=== PATIENT | female | born 1990 | race African-American/Black ===

== ENCOUNTER 2016-12-01 18:44 | Emergency (ER) | payer BC, MEDICAID ==
[~2016-12-01] VITALS: Ht 160 cm; Wt 126.1 kg
[~2016-12-01 18:44] MED LIST: ALBUTEROL SULF8.5 GM INH; AUGMENTIN 875-1 EACH PO; LISINOPRIL10 MG ORAL; METFORMIN HCL1000 M1 ORAL; NAPROXEN SODIU550 M1 ORAL; NKM
[2016-12-01] MEDS ORDERED: IBUPROFEN600 MG ORAL (19:35)
[2016-12-01] MEDS ORDERED: AMOXICILLIN500 MG ORAL (19:35)
[2016-12-01] MEDS ORDERED: TESSALON PERLE100 MG ORAL (19:35)
[2016-12-01 19:46] VITALS: BP 136/90
[2016-12-01] MEDS ORDERED: PROAIR HFA8.5 GM INH (19:50)
--- NOTE | 2016-12-01 22:11 | Emergency Room Report ---
History of Present Illness General Chief Complaint: Sore Throat Source: Patient, Medical Record Present Illness HPI The patient is a 26 old female presenting for sore throat, productive cough, fever, and chills which began yesterday. The patient does admit to a sick contact was diagnosed with pharyngitis. Pain is described as an 8/10 dull ache to the back of the throat and is worse with swallowing. She does admit to one episode of vomiting after coughing. She denies other symptoms including N, SOB , CP, MELENDEZ, dizziness Allergies: Coded Allergies: No Known Allergies (Unverified , 05/31/12) Patient History Past Medical History: see triage record Pertinent Family History: none Last Menstrual Period: on IUD Reviewed Nursing Documentation: PMH: Agreed, PSxH: Agreed Nursing Documentation-PMH Past Medical History: No History, Except For Hx Hypertension: Yes Hx Asthma: Yes Hx Diabetes: Yes Review of Systems All Other Systems: negative except mentioned in HPI Physical Exam Vital Signs Date Time Temp Pulse Resp B/P Pulse Ox O2 Delivery O2 Flow Rate FiO2 12/01/16 18:55 97.9 92 17 136/90 99 Room Air Sp02 EP Interpretation: reviewed, normal General Appearance: no apparent distress, alert, GCS 15, non-toxic Head: normocephalic, atraumatic Eyes: bilateral eye PERRL, bilateral eye normal inspection ENT: hearing grossly normal, TMs + canals normal, uvula midline, nasal congestion, tonsillar swelling, pharyngeal erythema Neck: full range of motion, supple/symm/no masses Respiratory: chest non-tender, lungs clear, normal breath sounds, no wheezing, speaking full sentences Cardiovascular #1: regular rate, rhythm, no edema Musculoskeletal: back normal, gait/station normal, normal range of motion, non- tender Neurologic: alert, oriented x3, responsive, motor strength/tone normal, sensory intact, speech normal Psychiatric: judgement/insight normal, memory normal, mood/affect normal, no suicidal/homicidal ideation Skin: normal color, no rash, warm/dry, well hydrated Lymphatic: adenopathy Medical Decision Making PA Attestation Dr. William is my supervising physician. Patient management was discussed with my supervising physician Diagnostic Impression: Primary Impression: Asthma Qualified Codes: J45.20 - Mild intermittent asthma, uncomplicated Additional Impression: Pharyngitis, acute Qualified Codes: J02.9 - Acute pharyngitis, unspecified ER Course The patient is a 26 old female presenting for sore throat, productive cough, fever, and chills Differential diagnosis include but not limited to pharyngitis, sinusitis, AOM, bronchitis, PNA Physical exam: Vitals within normal limits. Afebrile. No apparent distress HEENT exam: There is bilateral tonsillar edema, erythema, and exudate. Uvula midline. Moist mucous membranes. There is bilateral cervical lymphadenopathy. Lungs are clear to auscultation bilaterally Skin is warm and dry. No rash The patient will be discharged home with a prescription for amoxicillin and is given ER precautions. She is also given a refill of albuterol for asthma Patient will followup with primary care Last Vital Signs Date Time Temp Pulse Resp B/P Pulse Ox O2 Delivery O2 Flow Rate FiO2 12/01/16 19:46 97.9 17 136/90 99 Room Air 12/01/16 18:55 92 Status: improved Disposition: HOME, SELF-CARE Condition: Improved Scripts Albuterol Sulfate* (PROAIR HFA*) 8.5 Gm Hfa.aer.ad 2 PUFFS INH Q6H, #8.5 GM 0 Refills Prov: TERZIAN,TANGELA P.A. 12/01/16 Benzonatate* (TESSALON PERLE*) 100 Mg Capsule 100 MG ORAL THREE TIMES A DAY, #15 PERLE Prov: TERZIAN,TANGELA P.A. 12/01/16 Amoxicillin* (AMOXIL*) 500 Mg Capsule 500 MG ORAL Q12HR, #20 CAP Prov: TERZIAN,TANGELA P.A. 12/01/16 Ibuprofen* (MOTRIN*) 600 Mg Tablet 600 MG ORAL Q8H Y for For Pain, #30 TAB 0 Refills Prov: TERZIAN,TANGELA P.A. 12/01/16 Referrals: [facility],REFERRING (PCP) Patient Instructions: Pharyngitis, Sore Throat Additional Instructions: I discussed my findings with the patient. All questions and concerns have been answered. Treatment and medication compliance have been addressed. I advised the patient that they need to follow up with PMD in 3-5 days. Return to ED if pain remains or worsens, cough worsens or remains, you notice blood in your sputum, you notice wheezing, you experience a fever, or if needed for any reason. Patient verbalized understanding of discharge instructions. TANGELA SIMS December 01, 2016 22:11
== END 2016-12-01 19:46 | disposition home or self-care (01) ==
LOC: EMR 19:45
DX: J45.20 Mild intermittent asthma, uncomplicated (principal); J02.9 Acute pharyngitis, unspecified; R11.10 Vomiting, unspecified; I10 Essential (primary) hypertension; E11.9 Type 2 diabetes mellitus without complications
CPT/HCPCS: 99284